=== PATIENT | male | born 1985 | race Two or more races ===

== ENCOUNTER 2025-03-19 09:07 | Outpatient (REF) | payer OTHER, SELFPAY ==
[2025-03-19 12:59] LABS: MANUAL DIFF FLAG NO
[2025-03-19 13:10] LABS: Appearance Urine Clear; Glucose Urine UA Negative (Negative); PH 7.0 (5.0-9.0); Specific Gravity - Urine 1.015 (1.005-1.025)
[2025-03-19 13:15] LABS: Hematocrit 46.8 % (42.0-52.0); Hemoglobin 15.7 g/dl (14.0-18.0); Imm Gran Abs Auto 0.05 X10*3/uL (0.00-0.03); Imm Gran Pct Auto 0.5 % (0.0-0.4); Lymphocytes Absolute Auto 3.5 X10*3/uL (1.2-4.9); Mean Corpuscular HGB Conc 33.5 g/dl (31.0-36.0); Mean Corpuscular Hemoglobin 29.6 pg (27.0-33.0); Mean Corpuscular Volume 88.1 fL (80.0-98.0); NRBC Abs Auto 0.000 X10*3/uL (0.0-0.012); NRBC Pct Auto 0.0 /100WBC (0.0-0.2); Platelet Count 283 X10*3/uL (160-400); Red Blood Count 5.31 X10*6/uL (4.60-5.80); White Blood Count 9.7 X10*3/uL (4.8-10.8)
[2025-03-19 13:21] LABS: Total Hemoglobin (HGBA1C) 3942.1418 umol/L
[2025-03-19 13:28] LABS: Alanine Aminotransferase 36 U/L (0-40); Albumin Level 4.5 g/dL (3.5-5.0); Alkaline Phosphatase 72 U/L (39-117); Anion Gap 9 (12-20); Aspartate Amino Transferase 30 U/L (5-37); Blood Urea Nitrogen 19 mg/dL (9-16); Calcium 10.3 mg/dL (8.4-10.2); Carbon Dioxide 27 mmol/L (22-29); Chloride 106 mmol/L (96-108); Cholesterol 244 mg/dL (<200); Estimated Glomerular Filt Rate > 60; HDL Cholesterol 43 mg/dL (>40); Potassium 4.4 mmol/L (3.3-5.1); Sodium 138 mmol/L (135-145); Total Protein 7.8 g/dL (6.5-8.0); Triglycerides 179 mg/dL (<150)
[2025-03-19 14:48] LABS: CT PCR Urine NOT DETECTED (Not Detect.); NG PCR Urine NOT DETECTED (Not Detect.)
[2025-03-20 04:39] LABS: HBS Num1 0.00 mIU/mL (0-7.99); HBsAGNum1 0.49 S/CO (0.00-0.99); HIV Num 1 0.04 S/CO (0.00-0.99); Hepatitis B Surface Antigen Negative (Negative); ~HepC Num1 0.11 S/CO (0.00-0.79); ~Hepatitis B Surface Antibody NONREACTIVE (Nonreactive); ~Hepatitis C Antibody Nonreactive (Nonreactive)
[2025-03-20 04:47] LABS: Syphilis Screen Nonreactive (Nonreactive)
[2025-03-25 17:48] LABS: Chlamydia Pneumoniae Interp. Past Infection; Chlamydia Trachomatis IgA <1:16 titer (<1:16)
== END 2025-03-19 09:08 | disposition home or self-care (01) ==
LOC: HO.HKASLDS 09:07
PROVIDERS: Visit Provider Student in an Organized Health Care Education/Training Program
DX: Z00.00 Encounter for general adult medical examination without abnormal findings (principal); Z13.1 Encounter for screening for diabetes mellitus; Z13.220 Encounter for screening for lipoid disorders; Z11.3 Encounter for screening for infections with a predominantly sexual mode of transmission; Z13.6 Encounter for screening for cardiovascular disorders; Z01.89 Encounter for other specified special examinations; Z71.82 Exercise counseling; B07.9 Viral wart, unspecified; R22.0 Localized swelling, mass and lump, head; E66.811 Obesity, class 1; F17.210 Nicotine dependence, cigarettes, uncomplicated; Z68.32 Body mass index [BMI] 32.0-32.9, adult
CPT/HCPCS: 36415; 80053; 80061; 81003; 83036; 85025; 86631; 86632; 86706; 86780; 86803; 87340; 87389; 87491; 87591

== ENCOUNTER 2025-03-19 09:07 | Outpatient (AMB) | payer OTHER, SELFPAY ==
--- NOTE | 2025-03-19 09:10 | A.OFFPC_ITS ---
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 by: Self / Same As Patient Allergies No Known Allergies Allergy (Verified 03/19/25 09:10) Tobacco use date assessed: 03/19/25 Dental Screening Dental Screen Date: 03/19/25 Did you have a dental visit in the last 12 months?: Yes Did you have a dental problem in the last 6 months where you did not have access to dental care?: No Was dental information given to patient?: Patient has dentist HPI HPI Comments 2 History of Present Illness0 Details Patient comes in to establish care he has no past medical history He works at [employer] has no acute complaints at this time He is requesting labs he has no prior PCP came from [place] 4 years ago He is concerned about a mass on his head measures about 2 x 2 cm mobile he says that his noticed it Denies trauma pain fevers chills He also mentions that he has a wart at the base of his penis he has history of this he had a cauterized in [place] few years ago He denies any risky sexual behavior he is Of note he does mention that his is a cancer patient He mentions that he also smokes spent smoker for 5 years but it is once in a blue pratt [facility] Family History (Updated 03/19/25 @ 09:18 by Mark Anthony Reza MA) Father High blood pressure Mother High blood pressure Diabetes Social History (Updated 03/19/25 @ 09:18 by Mark Anthony Reza MA) Housing: Apartment Alcohol intake: current Alcohol intake frequency: holidays/special occasions only Patient Tobacco Use Status: Current someday Tobacco user Tobacco use type: Cigarette service: No Current occupational status: employed Cognitive needs: No Hearing needs: No Vision needs: No Questionnaire PHQ-9 Over the last 2 weeks, how often have you been bothered by any of the following problems? 1. Little interest or pleasure in doing things: not at all 2. Feeling down, depressed, or hopeless: not at all 3. Trouble falling or staying asleep, or sleeping too much: not at all 4. Feeling tired or having little energy: not at all 5. Poor appetite or overeating: not at all 6. Feeling bad about yourself - or that you are a failure or have let yourself or your family down: not at all 7. Trouble concentrating on things, such as reading the newspaper or watching television: not at all 8. Moving or speaking so slowly that other people could have noticed. Or the opposite - being so fidgety or restless that you have been moving around a lot more than usual: not at all 9. Thoughts that you would be better off or of hurting yourself in some way: not at all Total score: 0 Source: Developed by Drs. Tae Damon, Christen Washington, David Lee and colleagues, with an educational brian from [employer]. Thrive Questionnaire Date Thrive assessed: 03/19/25 I am a: Patient What is your living situation today?: I have a steady place to live Within the past 12 months, did the food you bought not last and you didn't have the money to get more?: Never true Within the past 12 months, did you worry whether your food would run out before you got money to buy more?: Never true Do you have trouble paying for medicines?: No Do you have trouble getting transportation to medical appointments?: No Do you have trouble paying your heating and electricity bill?: No Do you have trouble taking care of your child, family member or friend?: No Do you have trouble with day-to-day activities such as bathing, preparing meals, shopping, managing finances, etc.?: No Are you currently unemployed and looking for a job?: No Are you interested in more education?: No Please select the resources that you would like help with: None Currently or been in a relationship where the following occur: No concerns reported THRIVE Score: 0 AUDIT C Alcohol Use Questionnaire (AUDIT-C) 1. How often do you have a drink containing alcohol?: Monthly or less 2. How many drinks containing alcohol do you have on a typical day when you are drinking?: 1 or 2 3. How often do you have six or more drinks on one occasion?: Never Total Score: 1 Score Reviewed/Action Taken: Yes ALISIA-7 AMB Questionnaire ALISIA-7 Date ALISIA - 7 assessed: 03/19/25 Feeling nervous, anxious, or on edge: 0 = Not at all Not being able to stop or control worryin = Not at all Worrying too much about different things: 0 = Not at all Trouble relaxin = Not at all Being so restless that it is hard to sit still: 0 = Not at all Becoming easily annoyed or irritable: 0 = Not at all Feeling afraid as if something awful might happen: 0 = Not at all Total ALISIA-7 score (0-4 normal; 5-9 mild; 10-14 moderate; 15-21 severe): 0 Source: Developed by Drs. Tae Damon, Christen Washington, David Lee and colleagues, with an educational brian from [employer]. Review of Systems Const Details: 10-point ROS reviewed and negative except as noted in HPI. Physical exam (Primary Care) Vital Signs: Last Vital Signs Temp 97.3 F 03/19/25 09:18 Pulse 75 03/19/25 09:18 Resp 16 03/19/25 09:18 BP 116/90 H 03/19/25 09:18 Pulse Ox 99 03/19/25 09:18 Oxygen Delivery Method Room Air 03/19/25 09:18 BMI result Body Mass Index 32.5 32 BMI Assessment/Plan discussion: High Tobacco/Smoking Status: Tobacco use Status Tobacco use date assessed 03/19/25 03/19/25 09:15 Patient Tobacco Use Status Current someday Tobacco 03/19/25 09:23 Tobacco use type Cigarette 03/19/25 09:23 PHQ-9: PHQ-9 Score PHQ-9: Total score 0 03/19/25 09:15 Thrive Assessment: Date of Thrive Assessment Date Thrive assessed 03/19/25 03/19/25 09:15 Currently or been in a relationship where the following occur: No concerns reported Const Other: * Gen: NAD, A&O x3 * HEENT: NC/AT [id number] mobile mass , PERRLA, EOMI, OP clear, MMM * Neck: Supple, no LAD/JVD/bruit * COR: RRR, S1 S2, no m/r/g * Lungs: CTAB, BS equal bilat, no r/r/w * Abd: NT/ND, +BS, no HSM, no mass/rebound/guarding * Ext: No CCE, 2+ pulses * Neuro: CN II?XII grossly intact, motor/sensory intact, reflexes 2+, gait normal * Skin: WDI, no rash-> base of penis has wart [id number] HENMT Head images: 2 1. Coding Level of Care Code New Pt Level 3 (45579) Diagnoses Regular check-up Z00.00 Screening for diabetes mellitus Z13.1 Screening for lipoid disorders Z13.220 Routine screening for STI (sexually transmitted infection) Z11.3 Screening for hypertension Z13.6 Routine lab draw Z01.89 Exercise counseling Z71. Wart viral B07.9 Head mass R22.0 Class 1 obesity E66.811 Nicotine use Z72.0 Assessment & Plan Assessment & Plan (1) Regular check-up: Code(s): Z00.00 - Encounter for general adult medical examination without abnormal findings (2) Screening for diabetes mellitus: Code(s): Z13.1 - Encounter for screening for diabetes mellitus (3) Screening for lipoid disorders: Code(s): Z13.220 - Encounter for screening for lipoid disorders (4) Routine screening for STI (sexually transmitted infection): Code(s): Z11.3 - Encounter for screening for infections with a predominantly sexual mode of transmission (5) Screening for hypertension: Code(s): Z13.6 - Encounter for screening for cardiovascular disorders (6) Routine lab draw: Code(s): Z01.89 - Encounter for other specified special examinations (7) Exercise counseling: Code(s): Z71.82 - Exercise counseling (8) Wart viral: Code(s): B07.9 - Viral wart, unspecified Category: Medical (9) Head mass: Code(s): R22.0 - Localized swelling, mass and lump, head Category: Medical (10) Class 1 obesity: Code(s): E66.811 - Obesity, class 1 Category: Medical (11) Nicotine use: Code(s): Z72.0 - Tobacco use Category: Medical Plan screening labs rtc in 2 weeks for results viral wart -> podofilox 0.5% solution: * Apply with a cotton swab (or finger if using gel) directly to each wart until the surface is just covered. * Usually 1 drop per wart is sufficient ? enough to wet the lesion but not saturate surrounding skin. * Maximum total application area: <=0 cm? per treatment session (per CDC). * Do not exceed 0.5 mL per day. for head mass most likely lipoma refer to Gen surg for eval and tx obesity-> nutrition consult Orders: Orders 2 Hepatitis B Surface Antigen Today Z00.00 - Encounter for general adult medical examination without abnormal findings, Z11.3 - Encounter for screening for infections with a predominantly sexual mode of transmission, Z13.1 - Encounter for screening for diabetes mellitus, Z13.220 - Encounter for screening for lipoid disorders, Z13.6 - Encounter for screening for cardiovascular disorders HIV Ab/Ag Today Z00.00 - Encounter for general adult medical examination without abnormal findings, Z11.3 - Encounter for screening for infections with a predominantly sexual mode of transmission, Z13.1 - Encounter for screening for diabetes mellitus, Z13.220 - Encounter for screening for lipoid disorders, Z13.6 - Encounter for screening for cardiovascular disorders UA CC w/rflx Micro + Cult Today Z00.00 - Encounter for general adult medical examination without abnormal findings, Z11.3 - Encounter for screening for infections with a predominantly sexual mode of transmission, Z13.1 - Encounter for screening for diabetes mellitus, Z13.220 - Encounter for screening for lipoid disorders, Z13.6 - Encounter for screening for cardiovascular disorders Syphilis Screen Today Z00.00 - Encounter for general adult medical examination without abnormal findings, Z11.3 - Encounter for screening for infections with a predominantly sexual mode of transmission, Z13.1 - Encounter for screening for diabetes mellitus, Z13.220 - Encounter for screening for lipoid disorders, Z13.6 - Encounter for screening for cardiovascular disorders Lipid Panel Today Z00.00 - Encounter for general adult medical examination without abnormal findings, Z11.3 - Encounter for screening for infections with a predominantly sexual mode of transmission, Z13.1 - Encounter for screening for diabetes mellitus, Z13.220 - Encounter for screening for lipoid disorders, Z13.6 - Encounter for screening for cardiovascular disorders Hemoglobin A1c Today Z00.00 - Encounter for general adult medical examination without abnormal findings, Z11.3 - Encounter for screening for infections with a predominantly sexual mode of transmission, Z13.1 - Encounter for screening for diabetes mellitus, Z13.220 - Encounter for screening for lipoid disorders, Z13.6 - Encounter for screening for cardiovascular disorders Chlamydia Species Ab Panel Today Z11.3 - Encounter for screening for infections with a predominantly sexual mode of transmission Hepatitis C Antibody Today Z00.00 - Encounter for general adult medical examination without abnormal findings, Z11.3 - Encounter for screening for infections with a predominantly sexual mode of transmission, Z13.1 - Encounter for screening for diabetes mellitus, Z13.220 - Encounter for screening for lipoid disorders, Z13.6 - Encounter for screening for cardiovascular disorders Hepatitis B Surface Antibody Today Z00.00 - Encounter for general adult medical examination without abnormal findings, Z11.3 - Encounter for screening for infections with a predominantly sexual mode of transmission, Z13.1 - Encounter for screening for diabetes mellitus, Z13.220 - Encounter for screening for lipoid disorders, Z13.6 - Encounter for screening for cardiovascular disorders Complete Blood Count Auto Diff Today Z00.00 - Encounter for general adult medical examination without abnormal findings, Z11.3 - Encounter for screening for infections with a predominantly sexual mode of transmission, Z13.1 - Encounter for screening for diabetes mellitus, Z13.220 - Encounter for screening for lipoid disorders, Z13.6 - Encounter for screening for cardiovascular disorders Comprehensive Met. Panel Today Z00.00 - Encounter for general adult medical examination without abnormal findings, Z11.3 - Encounter for screening for infections with a predominantly sexual mode of transmission, Z13.1 - Encounter for screening for diabetes mellitus, Z13.220 - Encounter for screening for lipoid disorders, Z13.6 - Encounter for screening for cardiovascular disorders CT NG by PCR Urine Today Z11.3 - Encounter for screening for infections with a predominantly sexual mode of transmission Referrals 2 Order [facility] Nutrition Referral Z00.00 - Encounter for general adult medical examination without abnormal findings, Z11.3 - Encounter for screening for infections with a predominantly sexual mode of transmission, Z13.1 - Encounter for screening for diabetes mellitus, Z13.220 - Encounter for screening for lipoid disorders, Z13.6 - Encounter for screening for cardiovascular disorders General Surgery Referral R22.0 - Localized swelling, mass and lump, head Medications: New 2 podofilox 0.5% Apply BID for 3 days, then 4 days off; repeat up to 4 cycles 1 drp topical BID 3.5 mL 0RF 3 days
[2025-03-19 09:18] VITALS: BP 116/90; PULSE 75; RESP 16; TEMP 36.3; O2SAT 99; BMI 32.5
--- OUTSIDE RECORDS SUMMARY | 2025-03-19 09:38 | XMS_ITS | Clinical Summary ---
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 Name Role Phone Unavailable Primary Care Provider Unavailabl e Social History Tobacco Use Types Packs/Day Years Used Date Smoking Tobacco: Never Assessed Sex and Gender Information Value Date Recorded Sex Assigned at Not on file Legal Sex Male 8:30 PM EST Gender Identity Not on file Sexual Orientation Not on file Plan of Treatment Health Maintenance Due Date Last Done Comments DTaP,Tdap,and Td Vaccines (1 - Tdap) 2004 Hepatitis B Vaccines (1 of 3 - 19+ 3-dose series) 2004 Cholesterol Screening (Lipid Panel) 08/10/2023 HIV Screening 08/10/2023 Hepatitis C Screening 08/10/2023 Social Influencers of Health Screening 08/10/2023 Depression Screening 07/16/2024 COVID-19 Vaccine (2023-2 5 season) 2025 Influenza Vaccine (#1) 2025 HIB Vaccines Aged Out No longer eligi ble based on patient's age to complete this topic HPV Vaccines Aged Out No longer eligi ble based on patient's age to complete this topic Hepatitis A Vaccines Aged Out No long er eligible based on patient's age to complete this topic IPV Vaccines Aged Out No longer eligi ble based on patient's age to complete this topic MMR Vaccines Aged Out No longer eligi ble based on patient's age to complete this topic Meningococcal ACWY Vaccine Aged Out N o longer eligible based on patient's age to complete this topic Meningococcal B Vaccine Aged Out No l onger eligible based on patient's age to complete this topic Pneumococcal Vaccine: Pediat rics (0 to 5 Years) and At-Risk Patients (6 to 49 Years) Aged Out No longer eligible b ased on patient's age to complete this topic RSV Immunization Patients Un henry 20 months Aged Out No longer eligible b ased on patient's age to complete this topic Varicella Vaccines Aged Out No longer eligible based on patient's age to complete this topic
== END 2025-03-19 09:51 | disposition home or self-care (01) ==
LOC: HO.HMCFMS 09:08
PROVIDERS: Visit Provider Student in an Organized Health Care Education/Training Program
DX: Z00.00 Encounter for general adult medical examination without abnormal findings (principal); B07.9 Viral wart, unspecified; R22.0 Localized swelling, mass and lump, head; E66.811 Obesity, class 1; Z72.0 Tobacco use

== ENCOUNTER 2025-04-02 10:12 | Outpatient (AMB) | payer OTHER, SELFPAY ==
--- NOTE | 2025-04-02 10:17 | MHC.PC.OV ---
Vital Signs 04/02/25 10:18 Height 5 ft 5.83 in Weight 201 lb 6 oz BMI 32.7 BP 112/84 Blood Pressure Location Rt brachial Position Sitting Respiration 16 Pulse 74 Pulse Source Pulse Oximeter Temp 97.8 F Temp Source Oral Pulse Oximetry (%) 98 Oxygen Delivery Method Room Air Intake Visit Reasons: 2 week follow up Outdoor Advertising Leasing Agent Required: No Accompanied by: Self / Same As Patient Allergies No Known Allergies Allergy (Verified 04/02/25 10:18) Tobacco use date assessed: 03/19/25 Dental Screening Dental Screen Date: 03/19/25 Did you have a dental visit in the last 12 months?: Yes Did you have a dental problem in the last 6 months where you did not have access to dental care?: No Was dental information given to patient?: Patient has dentist HPI HPI Comments History of Present Illness Details History of Present Illness The patient is a 39-year-old male presenting with follow-up concerns regarding lipid levels and dizziness. Hyperlipidemia: - History of elevated cholesterol and triglycerides, with total cholesterol at 244 mg/dL and triglycerides at 179 mg/dL. - Dietary habits include occasional cheese and eggs, with limited yogurt and milk intake. - Sedentary lifestyle noted, with no regular exercise routine. Dizziness: - Recent onset of dizziness, described as slight and occurring with quick movements. - Symptoms improved today compared to yesterday. - Possible viral etiology considered, with no known sick contacts. Health Maintenance - Exercise: Recommended 150 minutes of moderate exercise per week, such as walking 30 minutes a day. - Diet: Advised to increase intake of green vegetables and monitor dietary fats. Review of Systems - Neurological: Reports dizziness with quick movements, improved today compared to yesterday. 10-point ROS reviewed and negative except as noted in HPI Past Medical History Physical Exam General: Well-appearing, in no acute distress. Vital signs: Within normal limits. HEENT: Normocephalic, atraumatic. PERRLA, EOMI. Conjunctiva clear, sclera anicteric. Oropharynx clear, mucous membranes moist. TMs intact bilaterally. Neck: Supple, no lymphadenopathy, no thyromegaly, no JVD or carotid bruits. Cardiovascular: RRR, normal S1/S2, no murmurs, rubs, or gallops. Peripheral pulses 2+ and symmetric. No edema. Respiratory: Lungs clear to auscultation bilaterally, no wheezes, rales, or rhonchi. Normal effort. Abdomen: Soft, non-tender, non-distended. Normoactive bowel sounds. No hepatosplenomegaly, no masses. MSK: Full range of motion, no joint swelling or deformity. Normal gait. Skin: Warm, dry, intact. No rashes, lesions, or pallor. Neuro: Alert and oriented x3. Cranial nerves II-XII intact. Strength 5/5 throughout. Sensation intact. Reflexes 2+ symmetric. Normal coordination and gait. Psych: Appropriate mood and affect. Normal judgment and insight. Discussion Notes I discussed the patient's elevated cholesterol and triglycerides, emphasizing the importance of dietary modifications and regular exercise to manage lipid levels. We also addressed the recent dizziness, considering a possible viral cause and recommended meclizine patient refused at this time Plan 1. Hyperlipidemia, unspecified E78.5 - Plan includes dietary modifications to reduce cholesterol intake and increase green vegetables. - Recommended 150 minutes of moderate exercise weekly to improve lipid profile. 2. Dizziness and giddiness R42 - Advised to monitor symptoms and consider viral etiology if symptoms persist. Patient Instructions - Engage in 30 minutes of walking daily to improve health. - Increase consumption of green vegetables and reduce dietary fats. PFSH Family History Father High blood pressure Mother High blood pressure Diabetes Social History Housing: Apartment Alcohol intake: current Alcohol intake frequency: holidays/special occasions only Patient Tobacco Use Status: Current someday Tobacco user Tobacco use type: Cigarette service: No Current occupational status: employed Cognitive needs: No Hearing needs: No Vision needs: No Questionnaire PHQ-9 Over the last 2 weeks, how often have you been bothered by any of the following problems? 1. Little interest or pleasure in doing things: not at all 2. Feeling down, depressed, or hopeless: not at all 3. Trouble falling or staying asleep, or sleeping too much: not at all 4. Feeling tired or having little energy: not at all 5. Poor appetite or overeating: not at all 6. Feeling bad about yourself - or that you are a failure or have let yourself or your family down: not at all 7. Trouble concentrating on things, such as reading the newspaper or watching television: not at all 8. Moving or speaking so slowly that other people could have noticed. Or the opposite - being so fidgety or restless that you have been moving around a lot more than usual: not at all 9. Thoughts that you would be better off or of hurting yourself in some way: not at all Total score: 0 Source: Developed by Drs. Tae Damon, Christen Washington, David Lee and colleagues, with an educational brian from [email or web address]. Thrive Questionnaire Date Thrive assessed: 03/19/25 I am a: Patient What is your living situation today?: I choose not to answer this question Within the past 12 months, did the food you bought not last and you didn't have the money to get more?: Never true Within the past 12 months, did you worry whether your food would run out before you got money to buy more?: Never true Do you have trouble paying for medicines?: I choose not to answer this question Do you have trouble getting transportation to medical appointments?: No Do you have trouble paying your heating and electricity bill?: No Do you have trouble taking care of your child, family member or friend?: No Are you currently unemployed and looking for a job?: No Are you interested in more education?: I choose not to answer this question Please select the resources that you would like help with: None Currently or been in a relationship where the following occur: No concerns reported THRIVE Score: 0 AUDIT C Alcohol Use Questionnaire (AUDIT-C) 1. How often do you have a drink containing alcohol?: Monthly or less 2. How many drinks containing alcohol do you have on a typical day when you are drinking?: 7 to 9 3. How often do you have six or more drinks on one occasion?: Monthly Total Score: 6 ALISIA-7 AMB Questionnaire ALISIA-7 Date ALISIA - 7 assessed: 03/19/25 Feeling nervous, anxious, or on edge: 0 = Not at all Not being able to stop or control worryin = Not at all Worrying too much about different things: 0 = Not at all Trouble relaxin = Not at all Being so restless that it is hard to sit still: 0 = Not at all Becoming easily annoyed or irritable: 0 = Not at all Feeling afraid as if something awful might happen: 0 = Not at all Total ALISIA-7 score (0-4 normal; 5-9 mild; 10-14 moderate; 15-21 severe): 0 Source: Developed by Drs. Tae Damon, Christen Washington, David Lee and colleagues, with an educational brian from [email or web address]. Physical exam (Primary Care) Vital Signs: Last Vital Signs Temp 97.8 F 04/02/25 10:18 Pulse 74 04/02/25 10:18 Resp 16 04/02/25 10:18 BP 112/84 04/02/25 10:18 Pulse Ox 98 04/02/25 10:18 Oxygen Delivery Method Room Air 04/02/25 10:18 BMI result Body Mass Index 32.7 Tobacco/Smoking Status: Tobacco use Status Tobacco use date assessed 03/19/25 04/02/25 10:21 Patient Tobacco Use Status Current someday Tobacco 04/02/25 10:21 Tobacco use type Cigarette 04/02/25 10:21 PHQ-9: PHQ-9 Score PHQ-9: Total score 0 04/02/25 10:21 Thrive Assessment: Date of Thrive Assessment Date Thrive assessed 03/19/25 04/02/25 10:21 Currently or been in a relationship where the following occur: No concerns reported Coding Level of Care Code Est Pt Level 3 (90253) Diagnoses Wart viral B07.9 Head mass R22.0 Class 1 obesity E66.811 Nicotine use Z72.0 Hyperlipidemia E78.5 Vertigo R42 Encounter for other administrative examinations Z02.89 Assessment & Plan Assessment & Plan (1) Wart viral: Comment: Patient states that he is having positive effects with medication that is drying up and it looks like it is going away Code(s): B07.9 - Viral wart, unspecified Category: Medical (2) Head mass: Comment: Has a scheduled appointment with General surgery Code(s): R22.0 - Localized swelling, mass and lump, head Category: Medical (3) Class 1 obesity: Code(s): E66.811 - Obesity, class 1 Category: Medical (4) Nicotine use: Code(s): Z72.0 - Tobacco use Category: Medical (5) Hyperlipidemia: Code(s): E78.5 - Hyperlipidemia, unspecified Plan: ASCVD (Atherosclerotic Cardiovascular Disease) Risk Algorithm including Known ASCVD from AHA/ACC RESULT SUMMARY: 1.5 % Risk of cardiovascular event (coronary or stroke or non-fatal GA or stroke) in next 10 years. No statin recommended because age <40; always encourage healthy cardiovascular lifestyle choices. Some patients with other high risk features may still be appropriate for treatment. (6) Vertigo: Code(s): R42 - Dizziness and giddiness (7) Encounter for other administrative examinations: Code(s): Z02.89 - Encounter for other administrative examinations Plan: Completed a letter for his to say that he is for work Plan
[2025-04-02 10:18] VITALS: BP 112/84; PULSE 74; RESP 16; TEMP 36.6; O2SAT 98; BMI 32.7
--- OUTSIDE RECORDS SUMMARY | 2025-04-02 12:12 | XMS_ITS | Clinical Summary ---
Author Organization [facility] ity Address [address] [place] [address] Care Team Providers Care Building Dismantler Name Role Phone Unavailable Primary Care Provider [...] Screening 08/10/2023 Depression Screening 07/16/2024 COVID-19 Vaccine ( - 2023-2 5 season) 2025 Influenza Vaccine (#1) 2025 RSV Immunization Adult Patie nts (1 - 1-dose 75+ series) 2060 HIB Vaccines Aged Out No longer eligi [...]
== END 2025-04-02 10:49 | disposition home or self-care (01) ==
LOC: HO.HMCFMS 10:13
PROVIDERS: PCP Student in an Organized Health Care Education/Training Program; Visit Provider Student in an Organized Health Care Education/Training Program
DX: B07.9 Viral wart, unspecified (principal); R22.0 Localized swelling, mass and lump, head; E66.811 Obesity, class 1; Z72.0 Tobacco use; E78.5 Hyperlipidemia, unspecified; R42 Dizziness and giddiness; Z02.89 Encounter for other administrative examinations

== ENCOUNTER → 2025-04-02 10:12 | Outpatient (BNVA) | payer OTHER, SELFPAY | PROVIDERS: PCP Student in an Organized Health Care Education/Training Program; Visit Provider Student in an Organized Health Care Education/Training Program | DX: B07.9 Viral wart, unspecified (principal); R22.0 Localized swelling, mass and lump, head; E66.811 Obesity, class 1; Z68.32 Body mass index [BMI] 32.0-32.9, adult; E78.5 Hyperlipidemia, unspecified; R42 Dizziness and giddiness; Z72.0 Tobacco use; Z02.89 Encounter for other administrative examinations; Z13.30 Encounter for screening examination for mental health and behavioral disorders, unspecified | CPT/HCPCS: 99212 ==

== ENCOUNTER 2025-05-06 11:04 | Outpatient (AMB) | payer OTHER, SELFPAY ==
--- NOTE | 2025-05-06 11:05 | A.OFFVIS_ITS ---
Vital Signs 05/06/25 11:09 Height 5 ft 5.83 in Weight 199 lb 8 oz BMI 32.4 Intake Visit Reasons: mass on head Intake Note: Patient was referred by Jose Mosqueda for an assessment for mass on head. Pt c/o; mass posterior head, no pain/discomfort, no drainage. Crowning Hammer Operator Required: Yes Crowning Hammer Operator Language: Casket Assembler Metal Services: Crowning Hammer Operator Present Crowning Hammer Operator Name: Caity Information Interpreted: non-clinical & clinical Accompanied by: Other Relationship Allergies No Known Allergies Allergy (Verified 05/06/25 11:10) Medication List - Last Reconciled 05/06/25 by Michael García MD No Known Home Meds HPI HPI mass on head: Details: 39-year-old male referred for a scalp mass. He said that he has had this mass on the back side of his scalp for about a year. This has been increasing in size. He denies any skin changes. Denies any discharge. [facility] Medical History (Updated 05/06/25 @ 11:24 by Michael García MD) Scalp mass Surgical History No pertinent past surgical history Family History Father High blood pressure Mother High blood pressure Diabetes Social History Housing: Apartment Alcohol intake: current Alcohol intake frequency: holidays/special occasions only Patient Tobacco Use Status: Current someday Tobacco user Tobacco use type: Cigarette service: No Current occupational status: employed Cognitive needs: No Hearing needs: No Vision needs: No Review of Systems Const Denies chills and Denies fever(s) Card Denies chest pain, Denies dyspnea and Denies dyspnea on exertion Resp Denies cough, Denies dyspnea and Denies dyspnea on exertion GI Denies hematochezia and Denies change in bowel habits Denies hematuria and Denies difficulty urinating Musc Denies back pain and Denies limited range of motion Neuro Denies focal weakness and Denies convulsions Psych Denies depression and Denies mood swings Physical Exam Vital Signs: BMI result Body Mass Index 32.4 Const General: comfortable and no acute distress Orientation/consciousness: patient oriented x3 HEENT Other: Lipomatous mass on the external aspect of the scalp about 2 cm in size, mobile Neck Neck: Yes no lymphadenopathy Resp Auscultation: clear to auscultation bilaterally Cardio Rhythm: regular rhythm GI Palpation (GI): Soft to palpation, nontender and no guarding Neuro General: patient oriented x3 Assessment & Plan Assessment & Plan (1) Scalp mass: Code(s): R22.0 - Localized swelling, mass and lump, head Category: Medical Plan: This is likely to be a lipoma. I explained to him the technique of excision under local anesthesia. I reviewed the risks including but not limited to bleeding and infections, as well as the benefits and alternatives. He understands and wants to proceed. This will be done in the office on his next visit. Coding Level of Care Code New Pt Level 3 (62701) Diagnoses Scalp mass R22.0
[2025-05-06 11:09] VITALS: BMI 32.4
--- OUTSIDE RECORDS SUMMARY | 2025-05-06 14:54 | XMS_ITS | Clinical Summary ---
Author Organization [employer] [facility] ity Address [address] [place] [address] Care Team Providers Care Tea And Spice Supervisor Name Role Phone Unavailable Primary Care Provider [...] of 3 - 19+ 3-dose series) 2004 HPV Vaccines (1 - 3-dose SCD M series) 2012 Cholesterol Screening (Lipid Panel) 08/10/2023 HIV Screening 08/10/2023 Hepatitis C Screening 08/10/2023 Social Influencers of Health Screening 08/10/2023 Depression Screening 07/16/2024 COVID-19 Vaccine (1 - 2023-2 5 season) 2025 Influenza Vaccine [...]
== END 2025-05-06 11:31 | disposition home or self-care (01) ==
LOC: HO.HGS 11:05
PROVIDERS: PCP Student in an Organized Health Care Education/Training Program; Visit Provider Surgery
DX: R22.0 Localized swelling, mass and lump, head (principal)
CPT/HCPCS: 99203

== ENCOUNTER → 2025-05-06 11:04 | Outpatient (BNVA) | payer OTHER, SELFPAY | PROVIDERS: PCP Student in an Organized Health Care Education/Training Program; Visit Provider Surgery | DX: R22.0 Localized swelling, mass and lump, head (principal) | CPT/HCPCS: 99202 ==

== ENCOUNTER 2025-06-17 09:15 | Outpatient (AMB) | payer OTHER, SELFPAY ==
[2025-06-17 09:26] VITALS: BMI 32.4
--- NOTE | 2025-06-17 09:26 | MHC.OFFVIS ---
Vital Signs 06/17/25 09:26 Height 5 ft 5.83 in Weight 199 lb 8.011 oz BMI 32.4 Intake Visit Reasons: Excision Lipoma of scalp Intake Note: Office procedure: Excision Lipoma of scalp Offender Employment Specialist Required: Yes Offender Employment Specialist Language: Client Service Supervisor Services: Offender Employment Specialist Present (Caity) Offender Employment Specialist Name: Caity Information Interpreted: non-clinical & clinical Accompanied by: Family/Other Allergies No Known Allergies Allergy (Verified 06/17/25 09:34) [facility] Medical History Scalp mass Surgical History (Reviewed 06/17/25 @ 09: by MARYLOU Pizano) No pertinent past surgical history Family History Father High blood pressure Mother High blood pressure Diabetes Social History Housing: Apartment Alcohol intake: current Alcohol intake frequency: holidays/special occasions only Patient Tobacco Use Status: Current someday Tobacco user Tobacco use type: Cigarette service: No Current occupational status: employed Cognitive needs: No Hearing needs: No Vision needs: No Office Procedures Excision Details: He was placed in prone position. The area of the mass on the scalp was prepped and draped. Lidocaine 1% was used for local anesthesia. I made an incision on the skin overlying the lipoma with a blade 15 and this was carried down through the full-thickness of the skin and subcutaneous fat. We continued to dissect and the lipoma actually was underneath the fascial layer so we had to open up the fascia and this dissect this. The lipoma was visualized. This was dissected off of the rest of the muscle layer until this was delivered and sent as a specimen. This measured about 2.1 cm. I closed the incision with full-thickness nylon 3-0 simple interrupted sutures. He did have a lot of bleeding from the subcutaneous layer. However, there was note of good hemostasis at the end of the procedure. The procedure was completed. He tolerated procedure well. There were no immediate complications. [id number] scalp/neck/hands/feet/genitalia 2.1cm-3cm Procedure code (CPT) selection complete Assessment & Plan Assessment & Plan (1) Scalp mass: Code(s): R22.0 - Localized swelling, mass and lump, head Category: Medical Plan: Excision was done in the office. This was an mass that was within the muscle layer and appeared to be a lipoma. He was given wound care instructions. I will see him in the office for removal of sutures. Orders: Orders Surgical Today R22.0 - Localized swelling, mass and lump, head Coding Level of Care Code Procedure Only Diagnoses Scalp mass R22.0 CPT Codes Scalp/Neck/Hands/Feet/Genetalia - CPT: [id number] scalp/neck/hands/feet/genitalia 2.1cm-3cm ([id number])
--- OUTSIDE RECORDS SUMMARY | 2025-06-17 10:00 | XMS_ITS | Clinical Summary ---
Author Organization [employer] [facility] ity Address [address] [place] [address] Care Team Providers Care Supervisor Customer Complaint Service Name Role Phone Unavailable Primary Care Provider [...] Depression Screening 07/16/2024 COVID-19 Vaccine (1 - 2024-2 6 season) 2025 Influenza Vaccine (#1) 2025 RSV [...]
== END 2025-06-17 10:17 | disposition home or self-care (01) ==
LOC: HO.HGS 09:16
PROVIDERS: PCP Student in an Organized Health Care Education/Training Program; Visit Provider Surgery
DX: R22.0 Localized swelling, mass and lump, head (principal)
CPT/HCPCS: 11423

== ENCOUNTER 2025-06-17 09:15 | Outpatient (REF) | payer OTHER, SELFPAY | END 2025-06-17 09:16 | disposition home or self-care (01) | LOC: HO.LNP 09:15 | PROVIDERS: PCP Student in an Organized Health Care Education/Training Program; Visit Provider Surgery | DX: R22.0 Localized swelling, mass and lump, head (principal) | CPT/HCPCS: 11423; 88304 ==

== ENCOUNTER 2025-06-30 09:21 | Outpatient (AMB) | payer OTHER, SELFPAY ==
[2025-06-30 09:26] VITALS: BP 109/64; PULSE 85; TEMP 36.8; O2SAT 98; BMI 32.8
--- NOTE | 2025-06-30 09:26 | A.OFFPC_ITS ---
Vital Signs 06/30/25 09:26 Height 5 ft 5.83 in Weight 202 lb BMI 32.8 BP 109/64 Blood Pressure Location Rt brachial Position Sitting Pulse 85 Pulse Source Pulse Oximeter Temp 98.2 F Temp Source Oral Pulse Oximetry (%) 98 Oxygen Delivery Method Room Air Intake Visit Reasons: - June F/U Accompanied by: Self / Same As Patient Allergies No Known Allergies Allergy (Verified 06/30/25 09:27) Tobacco use date assessed: 06/30/25 Dental Screening Dental Screen Date: 06/30/25 Did you have a dental visit in the last 12 months?: Yes Was dental information given to patient?: Patient has dentist HPI HPI Comments History of Present Illness Details History of Present Illness The patient is a 39 year old male presenting with a routine health check-up and follow-up after a recent surgery. Lipoma: The patient had a recent in-office surgery for a lipoma. The procedure was longer than expected because the growth was large and required thorough removal. The excised tissue, presumed to be fat, was sent for pathology to rule out malignancy. The patient reports the surgical site is healing well with some minor pain. Tobacco Use Disorder: The patient reports he has quit smoking cigarettes for approximately 3.5 months. He describes his past smoking as an intermittent habit, sometimes going two years without it, and relates starting again to stress or anxiety. Fatigue: The patient reports feeling tired from working a lot and experiencing occasional boredom with his routine. Surgical History: - Recent excision of a lipoma Social History: - Tobacco use: The patient reports he guzmán s quit smoking for 3.5 months. - Diet: The patient reports he is eating well, including a lot of salad and vegetables, and has reduced his rice intake. - Family status: The patient is seeking [facility] to care for his , who is a cancer survivor and is undergoing surgery related to her breast prostheses. - Employment: The patient works a lot an d experiences stress and anxiety related to his work. Family History: - : History of cancer, now undergoin g surgery related to breast prostheses. Diagnostic Results: - Pathology: Awaiting results from [facility] tissue. - Prior Blood Pressure Readings: Previou s readings were 112/84 mmHg and 116/90 mmHg. Past Medical History - The patient denies having any chronic conditions. Health Maintenance - Tobacco cessation: The patient has arturo t smoking for 3.5 months. - Diet: The patient is making dietary ch anges including eating more salads and vegetables and reducing rice intake, noting that his pants are looser at the waist. - Nutrition consult: A referral was prev iously made, but the patient was never contacted by the nutrition service and feels he does not need it now. [facility] Medical History (Updated 06/30/25 @ 12:26 by Jose Mosqueda MD) Fatigue Tobacco use disorder Lipoma Scalp mass Surgical History No pertinent past surgical history Family History Father High blood pressure Mother High blood pressure Diabetes Social History Housing: Apartment Alcohol intake: current Alcohol intake frequency: holidays/special occasions only Patient Tobacco Use Status: Former Tobacco user Tobacco use type: Cigarette e-Cigarette/Vaping Use: Never Used service: No Current occupational status: employed Cognitive needs: No Hearing needs: No Vision needs: No Questionnaire PHQ-9 Over the last 2 weeks, how often have you been bothered by any of the following problems? 1. Little interest or pleasure in doing things: not at all 2. Feeling down, depressed, or hopeless: not at all 3. Trouble falling or staying asleep, or sleeping too much: not at all 4. Feeling tired or having little energy: not at all 5. Poor appetite or overeating: not at all 6. Feeling bad about yourself - or that you are a failure or have let yourself or your family down: not at all 7. Trouble concentrating on things, such as reading the newspaper or watching television: not at all 8. Moving or speaking so slowly that other people could have noticed. Or the opposite - being so fidgety or restless that you have been moving around a lot more than usual: not at all 9. Thoughts that you would be better off or of hurting yourself in some way: not at all Total score: 0 Depression Screening Interpretation: Negative Depression Screening Done: Yes Source: Developed by Drs. Tae Damon, Christen B.W. David Washington and colleagues, with an educational brian from [employer]. Thrive Questionnaire Date Thrive assessed: 06/30/25 I am a: Patient What is your living situation today?: I choose not to answer this question Within the past 12 months, did the food you bought not last and you didn't have the money to get more?: Never true Within the past 12 months, did you worry whether your food would run out before you got money to buy more?: Never true Do you have trouble paying for medicines?: I choose not to answer this question Do you have trouble getting transportation to medical appointments?: No Do you have trouble paying your heating and electricity bill?: No Do you have trouble taking care of your child, family member or friend?: No Are you currently unemployed and looking for a job?: No Are you interested in more education?: I choose not to answer this question Please select the resources that you would like help with: None Currently or been in a relationship where the following occur: No concerns reported THRIVE Score: 0 AUDIT C Alcohol Use Questionnaire (AUDIT-C) 1. How often do you have a drink containing alcohol?: Monthly or less 2. How many drinks containing alcohol do you have on a typical day when you are drinking?: 7 to 9 3. How often do you have six or more drinks on one occasion?: Monthly Total Score: 6 ALISIA-7 AMB Questionnaire ALISIA-7 Date ALISIA - 7 assessed: 06/30/25 Feeling nervous, anxious, or on edge: 0 = Not at all Not being able to stop or control worryin = Not at all Worrying too much about different things: 0 = Not at all Trouble relaxin = Not at all Being so restless that it is hard to sit still: 0 = Not at all Becoming easily annoyed or irritable: 0 = Not at all Feeling afraid as if something awful might happen: 0 = Not at all Total ALISIA-7 score (0-4 normal; 5-9 mild; 10-14 moderate; 15-21 severe): 0 Source: Developed by Drs. Tae Damon, David Horowitz and colleagues, with an educational brian from [employer]. Review of Systems Narrative Review of Systems - General: Reports fatigue from work. - Constitutional: Reports feeling that his clothes fit looser at the waist although he has not lost much weight. - Psychiatric: Reports feeling bored with his routine and occasional stress and anxiety. - Musculoskeletal: Reports nocturnal hip pain that is relieved by kicking his leg. 10-point ROS reviewed and negative except as noted in HPI Physical exam (Primary Care) Vital Signs: Last Vital Signs Temp 98.2 F 06/30/25 09:26 Pulse 85 06/30/25 09:26 BP 109/64 06/30/25 09:26 Pulse Ox 98 06/30/25 09:26 Oxygen Delivery Method Room Air 06/30/25 09:26 BMI result Body Mass Index 32.8 Tobacco/Smoking Status: Tobacco use Status Tobacco use date assessed 06/30/25 06/30/25 09:29 Patient Tobacco Use Status Former Tobacco user 06/30/25 09:36 Tobacco use type Cigarette 06/30/25 09:27 e-Cigarette/Vaping Use Never Used 06/30/25 09:29 PHQ-9: PHQ-9 Score PHQ-9: Total score 0 06/30/25 09:46 Depression Screening Interpretation: Negative Thrive Assessment: Date of Thrive Assessment Date Thrive assessed 06/30/25 06/30/25 09:29 Currently or been in a relationship where the following occur: No concerns reported Narrative Physical Exam General: Well-appearing, in no acute distress. Vital signs: Blood pressure recorded at 109/64, which is excellent. Previous readings were 112/84 and 116/90. HEENT: Normocephalic, atraumatic. PERRLA, EOMI. Conjunctiva clear, sclera anicteric. Oropharynx clear, mucous membranes moist. TMs intact bilaterally. Neck: Supple, no lymphadenopathy, no thyromegaly, no JVD or carotid bruits. Cardiovascular: RRR, normal S1/S2, no murmurs, rubs, or gallops. Peripheral pulses 2+ and symmetric. No edema. Respiratory: Lungs clear to auscultation bilaterally, no wheezes, rales, or rhonchi. Normal effort. Abdomen: Soft, non-tender, non-distended. Normoactive bowel sounds. No hepatosplenomegaly, no masses. MSK: Full range of motion, no joint swelling or deformity. Normal gait. Skin: Warm, dry, intact. No rashes, lesions, or pallor. suture in place on scalp healing wound visible no signs of infection Neuro: Alert and oriented x3. Cranial nerves II-XII intact. Strength 5/5 throughout. Sensation intact. Reflexes 2+ symmetric. Normal coordination and gait. Psych: Appropriate mood and affect. Normal judgment and insight. Reports feeling bored and possibly stressed due to work and routine. Office Procedures Flu Questionnaire Does the patient have a severe egg allergy?: No Does the patient have severe life threatening allergies?: No Does the patient have a fever or illness today?: No Has the patient ever had Guillain-Leedey Syndrome?: No Has the patient ever had any past reaction to a flu shot?: No Immunizations Fluarix [id number] (PF) 45 mcg (15 mcg x 3)/0.5 mL IM syringe Performing Provider: Jose Mosqueda MD Performing Location: [facility] Documented (not given) by: Mago Marx CMA on 06/30/25 09:36 Reason Not Given: Patient Refused Coding Level of Care Code Est Pt Level 3 (47820) Add On Problem Visit Only Diagnoses Lipoma D17.9 Tobacco use disorder F17.200 Fatigue R53.83 Assessment & Plan Assessment & Plan (1) Lipoma: Code(s): D17.9 - Benign lipomatous neoplasm, unspecified Category: Medical (2) Tobacco use disorder: Code(s): F17.200 - Nicotine dependence, unspecified, uncomplicated Category: Medical (3) Fatigue: Code(s): R53.83 - Other fatigue Category: Medical Plan Consent Patient was informed and verbally consented to the use of an ambient scribe for clinic note documentation during this visit. Plan 1. Routine Health Maintenance - The patient's blood pressure is excellent at 109/64 mmHg, improved from a previous high of 116/90 mmHg. - A follow-up visit is scheduled in three months. 2. Tobacco Use Disorder - Praised the patient for having quit smoking for 3.5 months, acknowledging this is past the most difficult period. 3. Lipoma - The excised lipoma was sent to pathology to rule out any adverse findings, which is standard procedure. - The patient was advised to report back with any updates regarding the p athology results. Discussion Notes I reviewed the patient's recent lipoma excision, noting the surgical site is healing well. We discussed that the specimen was sent for pathology analysis as a routine measure, and while growths like this are typically benign fatty tissue, it is standard practice to confirm. I praised him for his successful tobacco cessation of 3.5 months, noting he has passed the most difficult phase. We also discussed his inquiry about obtaining FMLA to care for his . I advised that he needs to provide the FMLA paperwork to his 's physician. Regarding his own potential need for FMLA for rest, I explained that it is difficult without a formal diagnosis, as documentation is required to support the request. I recommended a follow-up appointment in three months to monitor his progress. Patient Instructions - Continue your healthy diet changes, including eating more salads and vegetables while limiting rice. - Continue to abstain from smoking cigarettes. - For FMLA paperwork for your , you must take the forms to her doctor to be filled out. - Let us know if anything arises or you receive the pathology results from your surgery. - Return to the clinic for a follow-up visit in three months. Medical Decision Making The patient, a 39-year-old male, presented for a routine check-up and follow-up on a recent lipoma excision. His surgical site is healing appropriately, and the specimen was sent for pathology as a standard precaution, although it is expected to be benign. The patient's blood pressure of 109/64 mmHg is excellent and shows improvement from previous elevated readings, likely due to his positive lifestyle changes, including dietary modifications. The most significant health behavior change is his cessation of smoking for 3.5 months, which I strongly encouraged him to maintain. He was counseled that FMLA requests require a documented medical diagnosis, making it difficult to approve for general fatigue or work-related stress alone. The plan is to follow up in three months to continue monitoring his overall health and support his ongoing positive health behaviors. Total Time Statement 20 min Total time spent caring for the patient today includes pre-visit chart review, documentation, review of laboratory and diagnostic imaging results, medication reconciliation, medically necessary evaluation, counseling on diagnoses, care coordination, ordering appropriate tests and medications, review of tests performed by other providers, reporting test results to the patient, and communication with other healthcare providers. Orders: Orders Influenza [id number] Immunization Today Z23 - Encounter for immunization
--- OUTSIDE RECORDS SUMMARY | 2025-06-30 10:51 | XMS_ITS | Clinical Summary ---
Author Organization [employer] [facility] ity Address [address] [place] [address] Care Team Providers Care Telephoner Name Role Phone Unavailable Primary Care Provider [...]
== END 2025-06-30 09:51 | disposition home or self-care (01) ==
LOC: HO.HMCFMS 09:22
PROVIDERS: PCP Student in an Organized Health Care Education/Training Program; Visit Provider Student in an Organized Health Care Education/Training Program
DX: D17.9 Benign lipomatous neoplasm, unspecified (principal); F17.200 Nicotine dependence, unspecified, uncomplicated; R53.83 Other fatigue; Z23 Encounter for immunization

== ENCOUNTER → 2025-06-30 09:21 | Outpatient (BNVA) | payer OTHER, SELFPAY | PROVIDERS: PCP Student in an Organized Health Care Education/Training Program; Visit Provider Student in an Organized Health Care Education/Training Program | DX: D17.9 Benign lipomatous neoplasm, unspecified (principal); R53.83 Other fatigue; F17.200 Nicotine dependence, unspecified, uncomplicated; Z71.6 Tobacco abuse counseling | CPT/HCPCS: 90471; 99212 ==

== ENCOUNTER 2025-07-07 09:16 | Outpatient (AMB) | payer OTHER, SELFPAY ==
--- NOTE | 2025-07-07 09:29 | MHC.OFFVIS ---
Vital Signs 07/07/25 09:32 Height 5 ft 5.83 in Weight 202 lb BMI 32.8 BP 112/72 Blood Pressure Location Rt brachial Position Sitting Pulse 85 Intake Visit Reasons: S/p lipoma excision/ scalp Intake Note: Patient here s/p lipoma excision on Lt post scalp. Patient c/o: Itch along sutures. Reports incision site healing well. Denies oozing. 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 States that his scalp is a bit itchy at the excision site. Also in the left lateral side there was some pain associated with a suture. There has been no bleeding or drainage from the incision site. Denies fevers at home. COUNTS INCLUDE 234 BEDS AT THE [facility] Medical History (Updated 06/30/25 @ 12:26 by Jose Mosqueda MD) Fatigue Tobacco use disorder Lipoma Scalp mass Surgical History (Updated 07/07/25 @ 09:52 by Kaz Narayanan PA-C) Hx of surgical procedure (06/17/25) No pertinent past surgical history Family History Father High blood pressure Mother High blood pressure Diabetes Social History Housing: Apartment Alcohol intake: current Alcohol intake frequency: holidays/special occasions only Patient Tobacco Use Status: Former Tobacco user Tobacco use type: Cigarette e-Cigarette/Vaping Use: Never Used service: No Current occupational status: employed Cognitive needs: No Hearing needs: No Vision needs: No Physical Exam Vital Signs: Last Vital Signs Pulse 85 07/07/25 09:32 BP 112/72 07/07/25 09:32 BMI result Body Mass Index 32.8 Const General: healthy appearing, comfortable and no acute distress Orientation/consciousness: patient oriented x3 HEENT Other: Left posterior scalp excision site: Well healed incision suture slightly buried. Mild scabbing on the left lateral side. No erythema, nontender to palpation sutures in place. No drainage, no edema Head images:  1. Excision site Resp Effort & Inspection: normal respiratory effort and able to speak in complete sentences Neuro General: patient oriented x3 Assessment & Plan Assessment & Plan (1) Hx of surgical procedure: Onset Date: 06/17/25 Comment: WLE: Lipoma~ left posterior scalp Dr. García Code(s): Z98.890 - Other specified postprocedural states Category: Medical Plan 40-year-old male SP excision of a posterior scalp lipoma on 06/17/[address] García returning to the office for suture removal, wound check. Patient doing well. Reporting some itching some mild pain on the left lateral side of the incision site. However he denies drainage, bleeding. There has been no fevers at home. On exam the excision site appears to be healing well, sutures in place slightly buried which resulted in a small amount of bleeding from the suture site. I did trim a dissolvable suture that was exposed from the center of the incision site. All the sutures were removed in the office without complication. The wound remained intact.. We have reviewed the pathology report showing findings consistent with lipoma. Patient is no longer requiring follow up can follow up as needed with any concerns future. Coding Level of Care Code Est Pt Level 4 (87340) Diagnoses Hx of surgical procedure Z98.890
[2025-07-07 09:32] VITALS: BP 112/72; PULSE 85; BMI 32.8
--- OUTSIDE RECORDS SUMMARY | 2025-07-07 09:58 | XMS_ITS | Clinical Summary ---
Author Organization [employer] [facility] ity Address [address] [place] [address] Care Team Providers Care Shipping Room Helper Name Role Phone Unavailable Primary Care Provider [...]
== END 2025-07-07 09:41 | disposition home or self-care (01) ==
LOC: HO.HGS 09:17
PROVIDERS: PCP Student in an Organized Health Care Education/Training Program
DX: Z98.890 Other specified postprocedural states (principal)
CPT/HCPCS: 99214

== ENCOUNTER → 2025-07-07 09:16 | Outpatient (BNVA) | payer OTHER, SELFPAY | PROVIDERS: PCP Student in an Organized Health Care Education/Training Program | DX: Z48.817 Encounter for surgical aftercare following surgery on the skin and subcutaneous tissue (principal); Z98.890 Other specified postprocedural states | CPT/HCPCS: 99212 ==